=== PATIENT | male | born 1955 | race Caucasian/White ===

== ENCOUNTER 2017-12-27 20:21 | Emergency (ER) | payer OTHER, SELFPAY ==
[~2017-12-27] VITALS: Ht 170.2 cm; Wt 88.6 kg
[~2017-12-27 20:21] MED LIST: LISI10TA PO
[2017-12-27] MEDS ORDERED: METO50 PO (20:45)
[2017-12-27] MEDS ORDERED: TAMS0.4C32 PO (20:45)
[2017-12-27] MEDS ORDERED: MESA400C2 PO (20:45)
[2017-12-27] MEDS ORDERED: LOSA50TA37 PO (20:45)
[2017-12-27] MEDS ORDERED: TIOT185 IH (20:45)
[2017-12-27] MEDS ORDERED: TRAZ-144 PO (20:45)
[2017-12-27] MEDS ORDERED: OMEP20 PO (20:45)
[2017-12-27 21:15] VITALS: BP 143/92
[2017-12-27] MEDS ORDERED: TAMSULOSIN HCL 0.4 MG CAPSULE PO ONE (22:00)
== END 2017-12-27 22:13 | disposition home or self-care (01) ==
LOC: EMS 20:22
DX: N40.0 Benign prostatic hyperplasia without lower urinary tract symptoms (principal); R39.12 Poor urinary stream; F17.210 Nicotine dependence, cigarettes, uncomplicated; E78.00 Pure hypercholesterolemia, unspecified; F20.9 Schizophrenia, unspecified; F32.9 Major depressive disorder, single episode, unspecified; I10 Essential (primary) hypertension; J45.909 Unspecified asthma, uncomplicated; Z88.0 Allergy status to penicillin; Z79.899 Other long term (current) drug therapy
CPT/HCPCS: 99283

== ENCOUNTER 2017-12-31 21:49 | Inpatient (IN) | payer OTHER ==
[~2017-12-31] VITALS: Ht 167.6 cm; Wt 84.9 kg
[~2017-12-31 21:49] MED LIST changes: -LISI10TA PO; +LOSA50TA37 PO; +MESA400C2 PO; +METO50 PO; +OMEP20 PO; +TAMS0.4C32 PO; +TIOT185 IH; +TRAZ-144 PO
[2017-12-31] MEDS ORDERED: ATOR40TA28 PO (22:12)
[2017-12-31] MEDS ORDERED: LORazepam 2 MG TABLET PO ONE (23:30)
[2017-12-31 23:37] LABS: BASOPHILS % (AUTO) 0.4 % (0.0-2.0); EOSINOPHILS % (AUTO) 0.4 % (1.0-6.0); HEMOGLOBIN 14.5 g/dL (13.5-17.5); LYMPHOCYTES # (AUTO) 0.8 K/uL (1.0-4.8); MEAN CORPUSCULAR HEMOGLOBIN 31.8 pg (26.0-34.0); MEAN CORPUSCULAR HGB CONC 34.5 G/dL (31.0-37.0); MEAN CORPUSCULAR VOLUME 92 fL (80-100); MONOCYTES # (AUTO) 0.7 K/uL (0.1-1.0); MONOCYTES % (AUTO) 5.9 % (2.0-9.0); NEUTROPHILS # (AUTO) 9.6 K/uL (1.8-7.7); PLATELET COUNT (AUTO) 218 K/uL (150-450); RED BLOOD CELL COUNT(AUTO) 4.56 MIL/uL (4.50-5.90); RED CELL DISTRIBUTION WIDTH 13.4 % (11.5-14.5)
[2017-12-31 23:39] LABS: NEUTROPHILS % (AUTO) 86.3 % (40.0-70.0)
[2017-12-31 23:54] LABS: ALANINE AMINOTRANSFERASE 26 U/L (12-78); ALBUMIN 3.7 g/dL (3.4-5.0); ALKALINE PHOSPHATASE 155 U/L (46-116); ANION GAP 13 mmol/L (8-16); ASPARTATE AMINOTRANSFERASE 13 U/L (15-37); CALCIUM, TOTAL 9.5 mg/dL (8.8-10.5); CARBON DIOXIDE 22 mmol/L (22-29); CHLORIDE 94 mmol/L (98-107); CREATININE 1.29 mg/dL (0.60-1.30); GLOMERULAR FILTR. RATE CALC 56 mL/min (>60); POTASSIUM 4.4 mmol/L (3.5-5.1); SODIUM SERUM 129 mmol/L (136-145); TOTAL PROTEIN, SERUM 8.3 g/dL (6.4-8.2); UREA NITROGEN, BLOOD 24 mg/dL (7-18)
[2017-12-31 23:58] LABS: GLUCOSE,RANDOM 631 mg/dL (70-110)
[2018-01-01 00:13] LABS: GLUCOSE,POINT OF CARE > 600 MG/DL (70-110)
[2018-01-01] MEDS ORDERED: SODIUM CHLORIDE 0.9% 1,000 ML IV ONE ×3 (00:15→11:00)
[2018-01-01] MEDS ORDERED: INSULIN REGULAR, HUMAN 100 UNITS/ML IVP ONE (00:15)
[2018-01-01 00:28] LABS: ACETONE,BLOOD NEGATIVE (NEGATIVE)
[2018-01-01 00:29] LABS: LIPASE 197 U/L (73-393)
[2018-01-01 00:32] LABS: HEMOGLOBIN A1C 10.1 % (4.5-6.2)
[2018-01-01 00:55] LABS: APPEARANCE,URINE CLEAR (CLEAR)
[2018-01-01 00:56] LABS: BILIRUBIN,URINE NEGATIVE (NEGATIVE); GLUCOSE, URINE (UA) >=1000 mg/dL (NEGATIVE); KETONES,URINE 40 mg/dL (NEGATIVE); LEUKOCYTE ESTERASE ,URINE NEGATIVE (NEGATIVE); NITRATE,URINE NEGATIVE (NEGATIVE); OCCULT BLOOD,URINE MODERATE (NEGATIVE); PH,URINE 5.5 (5.0-8.0); PROTEIN,URINE NEGATIVE (NEGATIVE); UROBILINOGEN,URINE 0.2 mg/dL (<=1.0)
[2018-01-01 00:57] LABS: BACTERIA,URINE None Seen /HPF (None Seen); WBC,URINE None Seen /HPF (0-5)
[2018-01-01 01:52] LABS: GLUCOSE,POINT OF CARE 417 MG/DL (70-110)
[2018-01-01 03:12] LABS: GLUCOSE,POINT OF CARE 373 MG/DL (70-110)
[2018-01-01] MEDS ORDERED: ONDANSETRON HCL 4 MG/2 ML VIAL IVP PRN ×2 (04:00→06:45)
[2018-01-01] MEDS ORDERED: 0.9% SODIUM CHLORIDE 10 ML SYRINGE IVP PRN (04:00)
[2018-01-01] MEDS ORDERED: ACETAMINOPHEN 325 MG TABLET PO PRN (04:00)
[2018-01-01 05:42] VITALS: BP 141/72
[2018-01-01] MEDS ORDERED: DEXTROSE 50%-WATER 25 GM/50 ML SYRINGE IVP PRN (05:45)
[2018-01-01] MEDS: INSULIN LISPRO 100 UNITS/ML SQ PRN ×4 (06:00→20:35)
[2018-01-01] MEDS ORDERED: PNEUMOCOCCAL VACCINE POLYVALENT 0.5 ML VIAL [PPSV23] IM ONE (06:15)
[2018-01-01] MEDS ORDERED: ALBUTEROL SULFATE 2.5 MG/0.5 ML NEB SOLUTION NEB PRN (06:45)
[2018-01-01] MEDS ORDERED: IPRATROPIUM BROMIDE 0.5 MG/2.5 ML NEB SOLUTION NEB PRN (06:45)
[2018-01-01] MEDS ORDERED: BISACODYL 10 MG RECTAL RECTAL SUPPOSITORY PR PRN (06:45)
[2018-01-01] MEDS ORDERED: MAGNESIUM HYDROXIDE SUSPENSION 30 ML UDCUP PO PRN (06:45)
[2018-01-01] MEDS ORDERED: ZOLPIDEM TARTRATE 5 MG TABLET PO PRN (06:45)
[2018-01-01 07:16] VITALS: BP 142/69
[2018-01-01] MEDS: OMEPRAZOLE 20 MG CAPSULE PO SCH (08:57)
[2018-01-01] MEDS: METOPROLOL TARTRATE 50 MG TABLET PO SCH ×2 (08:57→20:26)
[2018-01-01] MEDS: LOSARTAN POTASSIUM 50 MG TABLET PO SCH (08:57)
[2018-01-01] MEDS: TAMSULOSIN HCL 0.4 MG CAPSULE PO SCH (08:57)
[2018-01-01] MEDS: HEPARIN SODIUM,PORCINE 5,000 UNITS/ML VIAL SQ SCH ×2 (08:57→20:26)
[2018-01-01] MEDS: TIOTROPIUM BROMIDE 18 MCG/INH HANDIHALER [5] IH SCH (10:28)
[2018-01-01 12:23] LABS: GLUCOMETER DEV NAME(LOC) 6N 2D; GLUCOSE,POINT OF CARE 274 MG/DL (70-110)
[2018-01-01 12:23] LABS: GLUCOMETER DEV NAME(LOC) 6N 2D; GLUCOSE,POINT OF CARE 326 MG/DL (70-110)
[2018-01-01 12:25] VITALS: BP 124/66
[2018-01-01 15:22] VITALS: BP 122/70
[2018-01-01] MEDS: ACETAMINOPHEN 325 MG TABLET PO PRN (18:45)
[2018-01-01 19:33] VITALS: BP 132/83
[2018-01-01 20:03] LABS: GLUCOMETER DEV NAME(LOC) 6N 1E; GLUCOSE,POINT OF CARE 238 MG/DL (70-110)
[2018-01-01] MEDS: ATORVASTATIN CALCIUM 40 MG TABLET PO SCH (20:26)
[2018-01-01] MEDS ORDERED: INSULIN GLARGINE,HUM.REC.ANLOG 100 UNITS/ML SQ SCH ×2 (21:00)
[2018-01-01 22:42] LABS: GLUCOMETER DEV NAME(LOC) 6N 2D; GLUCOSE,POINT OF CARE 315 MG/DL (70-110)
[2018-01-01 23:25] VITALS: BP 142/79
[2018-01-02 02:56] VITALS: BP 153/80
[2018-01-02] MEDS: ACETAMINOPHEN 325 MG TABLET PO PRN (04:32)
[2018-01-02] MEDS: INSULIN LISPRO 100 UNITS/ML SQ PRN ×4 (05:57→21:56)
[2018-01-02 06:34] LABS: BASOPHILS % (AUTO) 1.1 % (0.0-2.0); EOSINOPHILS % (AUTO) 5.2 % (1.0-6.0); HEMATOCRIT 35.3 % (41-53); HEMOGLOBIN 12.5 g/dL (13.5-17.5); LYMPHOCYTES # (AUTO) 1.5 K/uL (1.0-4.8); LYMPHOCYTES % (AUTO) 21.2 % (22.0-44.0); MEAN CORPUSCULAR HEMOGLOBIN 32.1 pg (26.0-34.0); MEAN CORPUSCULAR HGB CONC 35.3 G/dL (31.0-37.0); MEAN CORPUSCULAR VOLUME 91 fL (80-100); MONOCYTES # (AUTO) 0.5 K/uL (0.1-1.0); MONOCYTES % (AUTO) 7.3 % (2.0-9.0); NEUTROPHILS # (AUTO) 4.7 K/uL (1.8-7.7); NEUTROPHILS % (AUTO) 65.2 % (40.0-70.0); PLATELET COUNT (AUTO) 191 K/uL (150-450); RED BLOOD CELL COUNT(AUTO) 3.89 MIL/uL (4.50-5.90); RED CELL DISTRIBUTION WIDTH 13.4 % (11.5-14.5)
[2018-01-02 06:47] LABS: ALANINE AMINOTRANSFERASE 19 U/L (12-78); ALBUMIN 2.6 g/dL (3.4-5.0); ALKALINE PHOSPHATASE 90 U/L (46-116); ANION GAP 8 mmol/L (8-16); ASPARTATE AMINOTRANSFERASE 12 U/L (15-37); BILIRUBIN,TOTAL 0.8 mg/dL (0.1-1.0); CALCIUM, TOTAL 7.8 mg/dL (8.8-10.5); CARBON DIOXIDE 26 mmol/L (22-29); CHLORIDE 105 mmol/L (98-107); CREATININE 0.88 mg/dL (0.60-1.30); GLOMERULAR FILTR. RATE CALC > 60 mL/min (>60); GLUCOSE,RANDOM 208 mg/dL (70-110); PHOSPHORUS 2.6 mg/dL (2.5-4.9); SODIUM SERUM 139 mmol/L (136-145); TOTAL PROTEIN, SERUM 6.2 g/dL (6.4-8.2); UREA NITROGEN, BLOOD 21 mg/dL (7-18)
[2018-01-02 08:02] VITALS: BP 133/55
[2018-01-02] MEDS: TAMSULOSIN HCL 0.4 MG CAPSULE PO SCH ×3 (08:49→21:01)
[2018-01-02] MEDS: LOSARTAN POTASSIUM 50 MG TABLET PO SCH (08:49)
[2018-01-02] MEDS: OMEPRAZOLE 20 MG CAPSULE PO SCH (08:49)
[2018-01-02] MEDS: METOPROLOL TARTRATE 50 MG TABLET PO SCH ×2 (08:49→21:03)
[2018-01-02] MEDS: TIOTROPIUM BROMIDE 18 MCG/INH HANDIHALER [5] IH SCH (08:49)
[2018-01-02] MEDS: HEPARIN SODIUM,PORCINE 5,000 UNITS/ML VIAL SQ SCH ×2 (08:50→21:09)
[2018-01-02] MEDS ORDERED: MAGNESIUM SULFATE 2 GM in DEXTROSE 5%-WATER 50 ML IV PRN (09:00)
[2018-01-02] MEDS ORDERED: MAGNESIUM SULFATE 4 GM/WATER 100 ML IV PRN (09:00)
[2018-01-02] MEDS ORDERED: POTASSIUM CHL 10 MEQ/WATER 50 ML IV PRN (09:00)
[2018-01-02] MEDS ORDERED: NICOTINE 21 MG/24 HOUR PATCH TD ONE (09:45)
[2018-01-02] MEDS ORDERED: SODIUM CHLORIDE 0.9% 0 ML IV ONE (11:40)
[2018-01-02 11:42] VITALS: BP 141/91
[2018-01-02] MEDS: POTASSIUM CHLORIDE 20 MEQ ER TABLET PO PRN (11:42)
[2018-01-02 16:15] VITALS: BP 136/83
[2018-01-02 18:57] LABS: GLUCOMETER DEV NAME(LOC) 6N 1E; GLUCOSE,POINT OF CARE 290 MG/DL (70-110)
[2018-01-02 18:57] LABS: GLUCOMETER DEV NAME(LOC) 6N 1E; GLUCOSE,POINT OF CARE 216 MG/DL (70-110)
[2018-01-02 18:57] LABS: GLUCOMETER DEV NAME(LOC) 6N 1E; GLUCOSE,POINT OF CARE 242 MG/DL (70-110)
[2018-01-02 19:32] VITALS: BP 131/85
[2018-01-02] MEDS ORDERED: INSULIN GLARGINE,HUM.REC.ANLOG 100 UNITS/ML SQ SCH (21:00)
[2018-01-02] MEDS: ATORVASTATIN CALCIUM 40 MG TABLET PO SCH (21:02)
[2018-01-02 22:08] LABS: GLUCOMETER DEV NAME(LOC) 6N 1E; GLUCOSE,POINT OF CARE 263 MG/DL (70-110)
[2018-01-02 23:18] VITALS: BP 126/83
[2018-01-03 04:39] VITALS: BP 121/76
[2018-01-03] MEDS: INSULIN LISPRO 100 UNITS/ML SQ PRN ×3 (05:51→17:18)
[2018-01-03 06:27] LABS: GLUCOMETER DEV NAME(LOC) 6N 1E; GLUCOSE,POINT OF CARE 247 MG/DL (70-110)
[2018-01-03 07:58] VITALS: BP 126/80
[2018-01-03] MEDS: OMEPRAZOLE 20 MG CAPSULE PO SCH (08:13)
[2018-01-03] MEDS: TAMSULOSIN HCL 0.4 MG CAPSULE PO SCH ×2 (08:13→20:20)
[2018-01-03] MEDS: METOPROLOL TARTRATE 50 MG TABLET PO SCH ×2 (08:13→20:21)
[2018-01-03] MEDS: LOSARTAN POTASSIUM 50 MG TABLET PO SCH (08:14)
[2018-01-03] MEDS: HEPARIN SODIUM,PORCINE 5,000 UNITS/ML VIAL SQ SCH ×2 (08:14→20:27)
[2018-01-03] MEDS: TIOTROPIUM BROMIDE 18 MCG/INH HANDIHALER [5] IH SCH (08:21)
[2018-01-03 11:23] LABS: GLUCOMETER DEV NAME(LOC) 6N 1E; GLUCOSE,POINT OF CARE 274 MG/DL (70-110)
[2018-01-03] MEDS: MAGNESIUM OXIDE 400 MG TABLET PO PRN ×3 (11:28→20:21)
[2018-01-03] MEDS: ACETAMINOPHEN 325 MG TABLET PO PRN ×2 (11:28→23:43)
[2018-01-03 12:05] VITALS: BP 127/90
[2018-01-03 16:14] VITALS: BP 135/79
[2018-01-03 17:53] LABS: GLUCOMETER DEV NAME(LOC) 6N 2D; GLUCOSE,POINT OF CARE 306 MG/DL (70-110)
[2018-01-03 19:10] VITALS: BP 135/84
[2018-01-03] MEDS: ATORVASTATIN CALCIUM 40 MG TABLET PO SCH (20:21)
[2018-01-03] MEDS: INSULIN GLARGINE,HUM.REC.ANLOG 100 UNITS/ML SQ SCH (20:27)
[2018-01-03] MEDS ORDERED: IOVERSOL 350 MG/ML 100 ML VIAL ONE (22:28)
[2018-01-03 22:56] VITALS: BP 139/87
[2018-01-04 00:18] LABS: GLUCOMETER DEV NAME(LOC) 6N 1E; GLUCOSE,POINT OF CARE 219 MG/DL (70-110)
[2018-01-04 04:35] VITALS: BP 136/83
[2018-01-04 08:02] VITALS: BP 135/83
[2018-01-04 08:33] LABS: BASOPHILS % (AUTO) 0.7 % (0.0-2.0); EOSINOPHILS % (AUTO) 6.5 % (1.0-6.0); HEMOGLOBIN 13.7 g/dL (13.5-17.5); LYMPHOCYTES # (AUTO) 1.5 K/uL (1.0-4.8); LYMPHOCYTES % (AUTO) 20.3 % (22.0-44.0); MEAN CORPUSCULAR HGB CONC 36.2 G/dL (31.0-37.0); MEAN CORPUSCULAR VOLUME 88 fL (80-100); MONOCYTES # (AUTO) 0.7 K/uL (0.1-1.0); MONOCYTES % (AUTO) 9.7 % (2.0-9.0); NEUTROPHILS # (AUTO) 4.7 K/uL (1.8-7.7); NEUTROPHILS % (AUTO) 62.8 % (40.0-70.0); PLATELET COUNT (AUTO) 192 K/uL (150-450); RED CELL DISTRIBUTION WIDTH 13.4 % (11.5-14.5)
[2018-01-04] MEDS: LOSARTAN POTASSIUM 50 MG TABLET PO SCH (08:42)
[2018-01-04] MEDS: METOPROLOL TARTRATE 50 MG TABLET PO SCH ×2 (08:43→20:02)
[2018-01-04] MEDS: OMEPRAZOLE 20 MG CAPSULE PO SCH (08:43)
[2018-01-04] MEDS: TAMSULOSIN HCL 0.4 MG CAPSULE PO SCH ×3 (08:43→20:34)
[2018-01-04] MEDS: TIOTROPIUM BROMIDE 18 MCG/INH HANDIHALER [5] IH SCH (08:43)
[2018-01-04 08:57] LABS: ANION GAP 5 mmol/L (8-16); CALCIUM, TOTAL 8.3 mg/dL (8.8-10.5); CARBON DIOXIDE 30 mmol/L (22-29); CHLORIDE 105 mmol/L (98-107); CREATININE 0.85 mg/dL (0.60-1.30); GLOMERULAR FILTR. RATE CALC > 60 mL/min (>60); GLUCOSE,RANDOM 187 mg/dL (70-110); POTASSIUM 3.5 mmol/L (3.5-5.1); SODIUM SERUM 140 mmol/L (136-145); UREA NITROGEN, BLOOD 12 mg/dL (7-18)
[2018-01-04] MEDS: HEPARIN SODIUM,PORCINE 5,000 UNITS/ML VIAL SQ SCH ×2 (09:00→20:02)
[2018-01-04 11:25] VITALS: BP 118/81
[2018-01-04] MEDS ORDERED: WATER FOR IRRIGATION,STERILE 3,000 ML IRRIG ONE (11:30)
[2018-01-04] MEDS: OxyCODONE HCL/ACETAMINOPHEN 5-325 MG TABLET PO PRN ×2 (11:51→20:01)
[2018-01-04] MEDS: INSULIN LISPRO 100 UNITS/ML SQ PRN ×3 (11:55→20:31)
[2018-01-04] MEDS ORDERED: MIDAZOLAM HCL 2 MG/2 ML VIAL IVP ONE (12:00)
[2018-01-04] MEDS ORDERED: DEXAMETHASONE SOD PHOS 4 MG/ML VIAL IVP ONE (12:00)
[2018-01-04] MEDS ORDERED: 0.9% SODIUM CHLORIDE 10 ML VIAL IVP ONE (12:00)
[2018-01-04] MEDS ORDERED: PROPOFOL 1% 20 ML VIAL IVP ONE (12:00)
[2018-01-04] MEDS ORDERED: EPHEDrine SULFATE 50 MG/ML VIAL IM ONE (12:00)
[2018-01-04] MEDS ORDERED: FentaNYL CITRATE-PF 100 MCG/2 ML VIAL IVP ONE (12:00)
[2018-01-04] MEDS ORDERED: LIDOCAINE HCL/PF 2% 5 ML VIAL INJ ONE (12:00)
[2018-01-04] MEDS ORDERED: SODIUM CHLORIDE 0.9% 1,000 ML IV ONE (12:32)
[2018-01-04] MEDS ORDERED: CefTRIAXone SODIUM 1 GM/VIAL ONE (12:54)
[2018-01-04] MEDS ORDERED: SODIUM CHLORIDE 0.9% 50 ML ONE (12:54)
[2018-01-04] MEDS ORDERED: HYDROmorphone 2 MG/ML SYRINGE IVP PRN (13:15)
[2018-01-04] MEDS ORDERED: FentaNYL CITRATE-PF 100 MCG/2 ML VIAL IVP PRN (13:15)
[2018-01-04] MEDS ORDERED: MEPERIDINE-PF 25 MG/ML SYRINGE IVP PRN (13:15)
[2018-01-04] MEDS ORDERED: MEPERIDINE HCL/PF 25 MG/0.5 ML AMP IVP PRN (14:30)
[2018-01-04] MEDS ORDERED: IOVERSOL 350 MG/ML 150 ML VIAL ONE (14:39)
[2018-01-04] MEDS ORDERED: IOHEXOL 180 MG/ML 20 ML VIAL ONE (14:40)
[2018-01-04 16:25] VITALS: BP 136/94
[2018-01-04 17:22] LABS: GLUCOMETER DEV NAME(LOC) 6N 2D; GLUCOSE,POINT OF CARE 227 MG/DL (70-110)
[2018-01-04 19:28] VITALS: BP 133/89
[2018-01-04] MEDS: ATORVASTATIN CALCIUM 40 MG TABLET PO SCH (20:02)
[2018-01-04] MEDS: INSULIN GLARGINE,HUM.REC.ANLOG 100 UNITS/ML SQ SCH (20:32)
[2018-01-04 23:28] LABS: GLUCOMETER DEV NAME(LOC) 6N 1E; GLUCOSE,POINT OF CARE 291 MG/DL (70-110)
[2018-01-04 23:28] LABS: GLUCOMETER DEV NAME(LOC) 6N 1E; GLUCOSE,POINT OF CARE 347 MG/DL (70-110)
[2018-01-04 23:46] VITALS: BP 135/84
[2018-01-05 03:57] VITALS: BP 136/71
[2018-01-05] MEDS: INSULIN LISPRO 100 UNITS/ML SQ PRN ×4 (06:15→20:16)
[2018-01-05 06:28] LABS: GLUCOMETER DEV NAME(LOC) 6N 1E; GLUCOSE,POINT OF CARE 158 MG/DL (70-110)
[2018-01-05 07:57] VITALS: BP 125/84
[2018-01-05] MEDS: OXYGEN THERAPY IH SCH (08:00)
[2018-01-05] MEDS: OMEPRAZOLE 20 MG CAPSULE PO SCH (08:20)
[2018-01-05] MEDS: METOPROLOL TARTRATE 50 MG TABLET PO SCH ×2 (08:20→20:10)
[2018-01-05] MEDS: LOSARTAN POTASSIUM 50 MG TABLET PO SCH (08:20)
[2018-01-05] MEDS: TIOTROPIUM BROMIDE 18 MCG/INH HANDIHALER [5] IH SCH (08:20)
[2018-01-05] MEDS: TAMSULOSIN HCL 0.4 MG CAPSULE PO SCH ×2 (08:21→20:09)
[2018-01-05] MEDS: HEPARIN SODIUM,PORCINE 5,000 UNITS/ML VIAL SQ SCH ×3 (08:21→20:20)
[2018-01-05] MEDS: OxyCODONE HCL/ACETAMINOPHEN 5-325 MG TABLET PO PRN ×3 (08:31→20:14)
[2018-01-05] MEDS ORDERED: PEG 3350/NA SULF,BICARB,CL/KCL 4000 ML SOLUTION PO ONE (10:45)
[2018-01-05 11:38] VITALS: BP 144/80
[2018-01-05 11:57] LABS: GLUCOMETER DEV NAME(LOC) 6N 2D; GLUCOSE,POINT OF CARE 344 MG/DL (70-110)
[2018-01-05 15:54] VITALS: BP 138/70
[2018-01-05 17:58] LABS: GLUCOMETER DEV NAME(LOC) 6N 2D; GLUCOSE,POINT OF CARE 207 MG/DL (70-110)
[2018-01-05 19:55] VITALS: BP 140/84
[2018-01-05] MEDS: ATORVASTATIN CALCIUM 40 MG TABLET PO SCH (20:10)
[2018-01-05] MEDS: INSULIN GLARGINE,HUM.REC.ANLOG 100 UNITS/ML SQ SCH (20:15)
[2018-01-05 20:32] LABS: GLUCOMETER DEV NAME(LOC) 6N 1E; GLUCOSE,POINT OF CARE 231 MG/DL (70-110)
[2018-01-06] VITALS (7 sets, daily range): BP systolic 103–146; BP diastolic 56–85
[2018-01-06] MEDS: ACETAMINOPHEN 325 MG TABLET PO PRN ×2 (00:17→10:43)
[2018-01-06] MEDS: OxyCODONE HCL/ACETAMINOPHEN 5-325 MG TABLET PO PRN ×3 (07:31→22:29)
[2018-01-06] MEDS: HEPARIN SODIUM,PORCINE 5,000 UNITS/ML VIAL SQ SCH ×2 (09:00→21:00)
[2018-01-06] MEDS ORDERED: SODIUM CHLORIDE 0.9% 1,000 ML IV ONE (09:58)
[2018-01-06] MEDS: LOSARTAN POTASSIUM 50 MG TABLET PO SCH (10:43)
[2018-01-06] MEDS: METOPROLOL TARTRATE 50 MG TABLET PO SCH ×2 (10:43→19:58)
[2018-01-06] MEDS: TAMSULOSIN HCL 0.4 MG CAPSULE PO SCH ×2 (10:43→19:58)
[2018-01-06] MEDS: OMEPRAZOLE 20 MG CAPSULE PO SCH (10:43)
[2018-01-06] MEDS ORDERED: PROPOFOL 1% 20 ML VIAL IVP ONE (12:00)
[2018-01-06] MEDS ORDERED: LIDOCAINE HCL/PF 2% 5 ML VIAL INJ ONE (12:00)
[2018-01-06] MEDS: TIOTROPIUM BROMIDE 18 MCG/INH HANDIHALER [5] IH SCH (12:09)
[2018-01-06] MEDS: INSULIN LISPRO 100 UNITS/ML SQ PRN ×3 (12:12→20:06)
[2018-01-06] MEDS: NEOMYCIN SULFATE 500 MG TABLET PO SCH ×2 (13:01→14:01)
[2018-01-06] MEDS: ERYTHROMYCIN BASE 500 MG TABLET PO SCH ×2 (13:01→14:01)
[2018-01-06 13:03] LABS: GLUCOMETER DEV NAME(LOC) 6N 1E; GLUCOSE,POINT OF CARE 285 MG/DL (70-110)
[2018-01-06 19:52] LABS: GLUCOMETER DEV NAME(LOC) 6N 2D; GLUCOSE,POINT OF CARE 164 MG/DL (70-110)
[2018-01-06] MEDS: ATORVASTATIN CALCIUM 40 MG TABLET PO SCH (19:58)
[2018-01-06] MEDS: INSULIN GLARGINE,HUM.REC.ANLOG 100 UNITS/ML SQ SCH (20:06)
[2018-01-07] MEDS: NEOMYCIN SULFATE 500 MG TABLET PO SCH ×2 (00:25→13:04)
[2018-01-07] MEDS: ERYTHROMYCIN BASE 500 MG TABLET PO SCH (00:25)
[2018-01-07 00:53] LABS: GLUCOMETER DEV NAME(LOC) 6N 1E; GLUCOSE,POINT OF CARE 169 MG/DL (70-110)
[2018-01-07 05:05] VITALS: BP 120/55
[2018-01-07] MEDS: INSULIN LISPRO 100 UNITS/ML SQ PRN ×3 (06:29→17:38)
[2018-01-07 06:39] LABS: GLUCOMETER DEV NAME(LOC) 6N 2D; GLUCOSE,POINT OF CARE 172 MG/DL (70-110)
[2018-01-07 07:33] LABS: BASOPHILS % (AUTO) 0.4 % (0.0-2.0); EOSINOPHILS % (AUTO) 2.8 % (1.0-6.0); HEMATOCRIT 36.6 % (41-53); HEMOGLOBIN 13.5 g/dL (13.5-17.5); LYMPHOCYTES # (AUTO) 0.9 K/uL (1.0-4.8); LYMPHOCYTES % (AUTO) 9.8 % (22.0-44.0); MEAN CORPUSCULAR HEMOGLOBIN 33.1 pg (26.0-34.0); MEAN CORPUSCULAR HGB CONC 36.8 G/dL (31.0-37.0); MEAN CORPUSCULAR VOLUME 90 fL (80-100); MONOCYTES # (AUTO) 0.8 K/uL (0.1-1.0); MONOCYTES % (AUTO) 8.9 % (2.0-9.0); NEUTROPHILS # (AUTO) 7.1 K/uL (1.8-7.7); NEUTROPHILS % (AUTO) 78.1 % (40.0-70.0); PLATELET COUNT (AUTO) 226 K/uL (150-450); RED BLOOD CELL COUNT(AUTO) 4.07 MIL/uL (4.50-5.90); RED CELL DISTRIBUTION WIDTH 13.6 % (11.5-14.5)
[2018-01-07 07:45] VITALS: BP 124/71
[2018-01-07 08:00] LABS: ALANINE AMINOTRANSFERASE 22 U/L (12-78); ALBUMIN 2.8 g/dL (3.4-5.0); ALKALINE PHOSPHATASE 103 U/L (46-116); ANION GAP 8 mmol/L (8-16); ASPARTATE AMINOTRANSFERASE 18 U/L (15-37); BILIRUBIN,TOTAL 0.8 mg/dL (0.1-1.0); CALCIUM, TOTAL 8.5 mg/dL (8.8-10.5); CARBON DIOXIDE 29 mmol/L (22-29); CHLORIDE 103 mmol/L (98-107); GLOMERULAR FILTR. RATE CALC > 60 mL/min (>60); GLUCOSE,RANDOM 167 mg/dL (70-110); POTASSIUM 3.6 mmol/L (3.5-5.1); SODIUM SERUM 140 mmol/L (136-145); TOTAL PROTEIN, SERUM 7.2 g/dL (6.4-8.2); UREA NITROGEN, BLOOD 10 mg/dL (7-18)
[2018-01-07] MEDS ORDERED: SODIUM CHLORIDE 0.9% 1,000 ML IV ONE (08:50)
[2018-01-07] MEDS ORDERED: SODIUM CL IRRIG SOLN BAG 3,000 ML IRRIG ONE (08:50)
[2018-01-07] MEDS ORDERED: BUPIVACAINE HCL/PF 0.25% 30 ML VIAL ONE (08:50)
[2018-01-07] MEDS: HEPARIN SODIUM,PORCINE 5,000 UNITS/ML VIAL SQ SCH ×2 (09:00→22:15)
[2018-01-07] MEDS ORDERED: MEPERIDINE-PF 25 MG/ML SYRINGE IVP PRN (09:15)
[2018-01-07] MEDS ORDERED: FentaNYL CITRATE-PF 100 MCG/2 ML VIAL IVP PRN (09:15)
[2018-01-07] MEDS ORDERED: MEPERIDINE HCL/PF 25 MG/0.5 ML AMP IVP PRN (09:15)
[2018-01-07] MEDS ORDERED: BUPIVACAINE 0.25%/EPI 1:200,000/PF 10 ML VIAL INJ ONE (09:30)
[2018-01-07] MEDS ORDERED: HYDROmorphone 2 MG/ML SYRINGE ONE (10:50)
[2018-01-07] MEDS: HYDROmorphone 2 MG/ML SYRINGE IVP PRN ×2 (10:52→11:05)
[2018-01-07 11:40] VITALS: BP 142/80
[2018-01-07] MEDS: MORPHINE SULFATE 4 MG/ML SYRINGE IVP PRN ×6 (11:45→22:14)
[2018-01-07] MEDS: LOSARTAN POTASSIUM 50 MG TABLET PO SCH (11:55)
[2018-01-07] MEDS: TAMSULOSIN HCL 0.4 MG CAPSULE PO SCH ×2 (11:55→19:58)
[2018-01-07] MEDS: OMEPRAZOLE 20 MG CAPSULE PO SCH (11:55)
[2018-01-07] MEDS: TIOTROPIUM BROMIDE 18 MCG/INH HANDIHALER [5] IH SCH (11:55)
[2018-01-07] MEDS: METOPROLOL TARTRATE 50 MG TABLET PO SCH ×2 (11:55→19:58)
[2018-01-07] MEDS ORDERED: EPINEPHrine 1:1,000 [1 MG/ML] AMP IM ONE (12:00)
[2018-01-07] MEDS ORDERED: 0.9% SODIUM CHLORIDE 10 ML VIAL IVP ONE (12:00)
[2018-01-07] MEDS ORDERED: LIDOCAINE HCL/PF 2% 5 ML VIAL INJ ONE (12:00)
[2018-01-07] MEDS ORDERED: ONDANSETRON HCL 4 MG/2 ML VIAL IVP ONE (12:00)
[2018-01-07] MEDS ORDERED: FentaNYL CITRATE-PF 100 MCG/2 ML VIAL IVP ONE (12:00)
[2018-01-07] MEDS ORDERED: EPHEDrine SULFATE 50 MG/ML VIAL IM ONE (12:00)
[2018-01-07] MEDS ORDERED: PROPOFOL 1% 20 ML VIAL IVP ONE (12:00)
[2018-01-07] MEDS ORDERED: MORPHINE SULFATE 4 MG/ML SYRINGE IVP ONE (12:00)
[2018-01-07] MEDS ORDERED: ROCURONIUM BROMIDE 10 MG/ML 5 ML VIAL IVP ONE (12:00)
[2018-01-07] MEDS ORDERED: NEOSTIGMINE METHYLSULFATE 1 MG/ML 10 ML VIAL IVP ONE (12:00)
[2018-01-07] MEDS ORDERED: SUCCINYLCHOLINE CHLORIDE 20 MG/ML 10 ML VIAL IVP ONE (12:00)
[2018-01-07] MEDS ORDERED: GLYCOPYRROLATE 0.2 MG/ML VIAL IM ONE (12:00)
[2018-01-07] MEDS ORDERED: PHENYLEPHRINE HCL 10 MG/ML VIAL IVP ONE (12:00)
[2018-01-07] MEDS ORDERED: MIDAZOLAM HCL 2 MG/2 ML VIAL IVP ONE (12:00)
[2018-01-07 14:18] LABS: GLUCOMETER DEV NAME(LOC) 6N 1E; GLUCOSE,POINT OF CARE 201 MG/DL (70-110)
[2018-01-07 17:53] LABS: GLUCOMETER DEV NAME(LOC) 6N 2D; GLUCOSE,POINT OF CARE 217 MG/DL (70-110)
[2018-01-07 19:50] VITALS: BP 128/83
[2018-01-07] MEDS: ATORVASTATIN CALCIUM 40 MG TABLET PO SCH (19:58)
[2018-01-07] MEDS ORDERED: OXYGEN THERAPY IH SCH (20:00)
[2018-01-07 21:33] LABS: GLUCOMETER DEV NAME(LOC) 6N 1E; GLUCOSE,POINT OF CARE 142 MG/DL (70-110)
[2018-01-07] MEDS: INSULIN GLARGINE,HUM.REC.ANLOG 100 UNITS/ML SQ SCH (22:15)
[2018-01-07 23:30] VITALS: BP 118/73
[2018-01-08] MEDS: HYDROCODONE/ACETAMINOPHEN 5-325 MG TABLET PO PRN ×4 (00:15→15:42)
[2018-01-08] MEDS: MORPHINE SULFATE 4 MG/ML SYRINGE IVP PRN ×7 (01:20→22:16)
[2018-01-08 04:42] VITALS: BP 113/74
[2018-01-08 06:44] LABS: GLUCOMETER DEV NAME(LOC) 6N 1E; GLUCOSE,POINT OF CARE 98 MG/DL (70-110)
[2018-01-08 07:45] VITALS: BP 96/64
[2018-01-08] MEDS: OXYGEN THERAPY IH SCH (08:00)
[2018-01-08] MEDS: OMEPRAZOLE 20 MG CAPSULE PO SCH (08:34)
[2018-01-08] MEDS: TIOTROPIUM BROMIDE 18 MCG/INH HANDIHALER [5] IH SCH (08:34)
[2018-01-08] MEDS: HEPARIN SODIUM,PORCINE 5,000 UNITS/ML VIAL SQ SCH ×2 (08:34→19:53)
[2018-01-08] MEDS: LOSARTAN POTASSIUM 50 MG TABLET PO SCH (08:35)
[2018-01-08] MEDS: METOPROLOL TARTRATE 50 MG TABLET PO SCH ×2 (08:35→19:53)
[2018-01-08] MEDS: TAMSULOSIN HCL 0.4 MG CAPSULE PO SCH ×2 (08:35→19:53)
[2018-01-08 09:15] LABS: BASOPHILS % (AUTO) 0.7 % (0.0-2.0); EOSINOPHILS % (AUTO) 3.1 % (1.0-6.0); HEMATOCRIT 36.2 % (41-53); HEMOGLOBIN 12.8 g/dL (13.5-17.5); LYMPHOCYTES # (AUTO) 1.3 K/uL (1.0-4.8); LYMPHOCYTES % (AUTO) 13.2 % (22.0-44.0); MEAN CORPUSCULAR HEMOGLOBIN 31.7 pg (26.0-34.0); MEAN CORPUSCULAR HGB CONC 35.3 G/dL (31.0-37.0); MEAN CORPUSCULAR VOLUME 90 fL (80-100); MONOCYTES # (AUTO) 0.8 K/uL (0.1-1.0); MONOCYTES % (AUTO) 8.5 % (2.0-9.0); NEUTROPHILS # (AUTO) 7.3 K/uL (1.8-7.7); NEUTROPHILS % (AUTO) 74.5 % (40.0-70.0); PLATELET COUNT (AUTO) 255 K/uL (150-450); RED BLOOD CELL COUNT(AUTO) 4.04 MIL/uL (4.50-5.90); RED CELL DISTRIBUTION WIDTH 13.9 % (11.5-14.5)
[2018-01-08 09:34] LABS: ALANINE AMINOTRANSFERASE 24 U/L (12-78); ALBUMIN 2.8 g/dL (3.4-5.0); ALKALINE PHOSPHATASE 100 U/L (46-116); ANION GAP 7 mmol/L (8-16); ASPARTATE AMINOTRANSFERASE 19 U/L (15-37); BILIRUBIN,TOTAL 0.9 mg/dL (0.1-1.0); CALCIUM, TOTAL 7.9 mg/dL (8.8-10.5); CARBON DIOXIDE 28 mmol/L (22-29); CHLORIDE 103 mmol/L (98-107); CREATININE 1.06 mg/dL (0.60-1.30); GLOMERULAR FILTR. RATE CALC > 60 mL/min (>60); GLUCOSE,RANDOM 96 mg/dL (70-110); POTASSIUM 3.3 mmol/L (3.5-5.1); SODIUM SERUM 138 mmol/L (136-145); TOTAL PROTEIN, SERUM 7.1 g/dL (6.4-8.2); UREA NITROGEN, BLOOD 7 mg/dL (7-18)
[2018-01-08] MEDS: INSULIN LISPRO 100 UNITS/ML SQ PRN ×3 (11:44→20:23)
[2018-01-08 11:55] VITALS: BP 119/77
[2018-01-08 14:23] LABS: GLUCOMETER DEV NAME(LOC) 6N 2D; GLUCOSE,POINT OF CARE 139 MG/DL (70-110)
[2018-01-08 16:28] VITALS: BP 146/97
[2018-01-08] MEDS: POTASSIUM CHLORIDE 20 MEQ ER TABLET PO PRN (16:58)
[2018-01-08 19:44] LABS: GLUCOMETER DEV NAME(LOC) 6N 1E; GLUCOSE,POINT OF CARE 157 MG/DL (70-110)
[2018-01-08] MEDS: ATORVASTATIN CALCIUM 40 MG TABLET PO SCH (19:53)
[2018-01-08 19:59] VITALS: BP 123/83
[2018-01-08] MEDS: INSULIN GLARGINE,HUM.REC.ANLOG 100 UNITS/ML SQ SCH (20:23)
[2018-01-08 20:48] LABS: GLUCOMETER DEV NAME(LOC) 6N 2D; GLUCOSE,POINT OF CARE 201 MG/DL (70-110)
[2018-01-09 00:15] VITALS: BP 131/80
[2018-01-09] MEDS: MORPHINE SULFATE 4 MG/ML SYRINGE IVP PRN ×2 (03:22→05:29)
[2018-01-09 04:54] VITALS: BP 126/84
[2018-01-09] MEDS: INSULIN LISPRO 100 UNITS/ML SQ PRN ×2 (05:28→12:28)
[2018-01-09 05:43] LABS: GLUCOMETER DEV NAME(LOC) 6N 1E; GLUCOSE,POINT OF CARE 133 MG/DL (70-110)
[2018-01-09 07:52] VITALS: BP 132/89
[2018-01-09] MEDS: OXYGEN THERAPY IH SCH (08:00)
[2018-01-09] MEDS: HYDROCODONE/ACETAMINOPHEN 5-325 MG TABLET PO PRN ×3 (08:42→16:34)
[2018-01-09] MEDS: OMEPRAZOLE 20 MG CAPSULE PO SCH (08:42)
[2018-01-09] MEDS: METOPROLOL TARTRATE 50 MG TABLET PO SCH (08:43)
[2018-01-09] MEDS: LOSARTAN POTASSIUM 50 MG TABLET PO SCH (08:43)
[2018-01-09] MEDS: TAMSULOSIN HCL 0.4 MG CAPSULE PO SCH (08:43)
[2018-01-09] MEDS: TIOTROPIUM BROMIDE 18 MCG/INH HANDIHALER [5] IH SCH (08:44)
[2018-01-09] MEDS: HEPARIN SODIUM,PORCINE 5,000 UNITS/ML VIAL SQ SCH (08:44)
[2018-01-09 11:54] VITALS: BP 116/68
[2018-01-09 12:23] LABS: GLUCOMETER DEV NAME(LOC) 6N 2D; GLUCOSE,POINT OF CARE 186 MG/DL (70-110)
[2018-01-09] MEDS ORDERED: INSLAN SQ (15:52)
[2018-01-09 19:33] LABS: GLUCOMETER DEV NAME(LOC) 6N 1E; GLUCOSE,POINT OF CARE 131 MG/DL (70-110)
== END 2018-01-09 18:50 | disposition home or self-care (01) | DRG 952 ==
LOC: EMS 21:50 → 6N 01-01 04:22
PROVIDERS: ADMIT Internal Medicine; ATTEND Internal Medicine
PROC: 0TJB8ZZ Inspection of Bladder, Via Natural or Artificial Opening Endoscopic (ICD-10-PCS; principal; 2018-01-04 14:00)
PROC: 0DJD8ZZ Inspection of Lower Intestinal Tract, Via Natural or Artificial Opening Endoscopic (ICD-10-PCS; 2018-01-06)
PROC: 0WJG4ZZ Inspection of Peritoneal Cavity, Percutaneous Endoscopic Approach (ICD-10-PCS; 2018-01-07)
DX: N40.1 Benign prostatic hyperplasia with lower urinary tract symptoms (principal); E11.65 Type 2 diabetes mellitus with hyperglycemia; E87.1 Hypo-osmolality and hyponatremia; K51.90 Ulcerative colitis, unspecified, without complications; N30.91 Cystitis, unspecified with hematuria; N32.89 Other specified disorders of bladder; F20.9 Schizophrenia, unspecified; I10 Essential (primary) hypertension; E87.6 Hypokalemia; G51.0 Bell's palsy; R33.8 Other retention of urine; F32.9 Major depressive disorder, single episode, unspecified; E66.9 Obesity, unspecified; E78.00 Pure hypercholesterolemia, unspecified; K57.30 Diverticulosis of large intestine without perforation or abscess without bleeding; F17.210 Nicotine dependence, cigarettes, uncomplicated; E78.5 Hyperlipidemia, unspecified; J44.9 Chronic obstructive pulmonary disease, unspecified; K21.9 Gastro-esophageal reflux disease without esophagitis; K64.8 Other hemorrhoids; Z88.0 Allergy status to penicillin; Z79.899 Other long term (current) drug therapy; Z80.0 Family history of malignant neoplasm of digestive organs; Z80.42 Family history of malignant neoplasm of prostate; Z68.30 Body mass index [BMI] 30.0-30.9, adult
CPT/HCPCS: 51702; 70450; 72193; 74018; 74178; 83036; 83605; 83735; 84100; 84132; 84153; 87086; 93005; 96374; 99285; J0171; J0330; J0696; J1100; J1170; J1644; J1815; J2250; J2270; J2370; J2405; J2704; J3010; J3475; J3490; J7030; J7050; J7060; Q9965

== ENCOUNTER 2019-07-17 17:12 | Inpatient (IN) | payer MEDICARE, OTHER ==
[~2019-07-17] VITALS: Ht 167.6 cm; Wt 66.5 kg
[~2019-07-17 17:12] MED LIST changes: +ATOR40TA28 PO; +INSLAN SQ; -LOSA50TA37 PO; +LOSA50TA64 PO; -MESA400C2 PO; +TAMS-13 PO; -TAMS0.4C32 PO; -TRAZ-144 PO
[2019-07-17 17:51] LABS: GLUCOSE,POINT OF CARE 187 MG/DL (70-110)
[2019-07-17 19:08] LABS: BASOPHILS % (AUTO) 0.2 % (0.0-2.0); EOSINOPHILS % (AUTO) 0 % (1.0-6.0); HEMATOCRIT 24.3 % (41-53); HEMOGLOBIN 8.2 g/dL (13.5-17.5); LYMPHOCYTES # (AUTO) 0.5 K/uL (1.0-4.8); LYMPHOCYTES % (AUTO) 2.9 % (22.0-44.0); MEAN CORPUSCULAR HEMOGLOBIN 30.3 pg (26.0-34.0); MEAN CORPUSCULAR HGB CONC 33.8 G/dL (31.0-37.0); MEAN CORPUSCULAR VOLUME 90 fL (80-100); MONOCYTES # (AUTO) 0.3 K/uL (0.1-1.0); MONOCYTES % (AUTO) 1.5 % (2.0-9.0); NEUTROPHILS # (AUTO) 16.5 K/uL (1.8-7.7); NEUTROPHILS % (AUTO) 95.4 % (40.0-70.0); PLATELET COUNT (AUTO) 298 K/uL (150-450); RED BLOOD CELL COUNT(AUTO) 2.71 MIL/uL (4.50-5.90); RED CELL DISTRIBUTION WIDTH 14.2 % (11.5-14.5)
[2019-07-17 19:20] LABS: INR 1.1 (0.9-1.1); PROTHROMBIN TIME 11.6 SEC (9.4-11.6)
[2019-07-17 19:22] LABS: ANION GAP 8 mmol/L (8-16); CALCIUM, TOTAL 8.5 mg/dL (8.8-10.5); CARBON DIOXIDE 29 mmol/L (22-29); CHLORIDE 102 mmol/L (98-107); CREATININE 1.94 mg/dL (0.60-1.30); GLOMERULAR FILTR. RATE CALC 35 mL/min (>60); GLUCOSE,RANDOM 148 mg/dL (70-110); POTASSIUM 4.2 mmol/L (3.5-5.1); SODIUM SERUM 139 mmol/L (136-145); UREA NITROGEN, BLOOD 34 mg/dL (7-18)
[2019-07-17 19:35] LABS: LACTIC ACID 3.1 mmol/L (0.4-2.0)
[2019-07-17 19:40] LABS: ALANINE AMINOTRANSFERASE 306 U/L (12-78); ALBUMIN 2.9 g/dL (3.4-5.0); ALKALINE PHOSPHATASE 383 U/L (46-116); ASPARTATE AMINOTRANSFERASE 230 U/L (15-37); BILIRUBIN,TOTAL 3.2 mg/dL (0.1-1.0); FREE T4 (FREE THYROXINE) 1.11 ng/dL (0.76-1.46); LIPASE 35 U/L (73-393)
[2019-07-17 19:44] LABS: B-TYPE NATRIURETIC PEPTIDE 71 pg/mL (0-100)
[2019-07-17 19:44] LABS: APPEARANCE,URINE CLOUDY (CLEAR); GLUCOSE, URINE (UA) NEGATIVE (NEGATIVE); KETONES,URINE NEGATIVE (NEGATIVE); LEUKOCYTE ESTERASE ,URINE SMALL (NEGATIVE); NITRATE,URINE NEGATIVE (NEGATIVE); OCCULT BLOOD,URINE LARGE (NEGATIVE); PH,URINE 7.5 (5.0-8.0); PROTEIN,URINE POS 1+ (NEGATIVE)
[2019-07-17 19:49] LABS: AMPHET/METH SCREEN,URINE NEGATIVE (NEGATIVE); BARBITURATE SCREEN, URINE NEGATIVE (NEGATIVE); BENZODIAZEPINES SCREEN,URINE NEGATIVE (NEGATIVE); BILIRUBIN,URINE PRELIM. POSITIVE (NEGATIVE); CANNABINOID SCREEN,URINE NEGATIVE (NEGATIVE); COCAINE SCREEN,URINE NEGATIVE (NEGATIVE); METHADONE SCREEN, URINE NEGATIVE (NEGATIVE); OPIATE SCREEN,URINE POSITIVE (NEGATIVE); PHENCYCLIDINE SCREEN,URINE NEGATIVE (NEGATIVE)
[2019-07-17 20:06] LABS: RBC,URINE >100 /HPF (0-2)
[2019-07-17 20:07] LABS: BACTERIA,URINE Moderate /HPF (None Seen); SQUAMOUS EPITHELIAL CELL,UR Few /LPF (None Seen)
[2019-07-17] MEDS ORDERED: BARIUM SULFATE 0.1% SUSPENSION 450 ML BOTTLE PO ONE (20:45)
[2019-07-17] MEDS ORDERED: SODIUM CHLORIDE 0.9% 2,000 ML IV ONE (21:00)
[2019-07-17] MEDS ORDERED: CefTRIAXone 1 GM/DEXTROSE 50 ML IV ONE (21:00)
[2019-07-17] MEDS ORDERED: ONDANSETRON HCL 4 MG/2 ML VIAL IVP PRN (22:15)
[2019-07-17] MEDS ORDERED: 0.9% SODIUM CHLORIDE 10 ML SYRINGE IVP PRN (22:15)
[2019-07-17] MEDS ORDERED: INSULIN LISPRO 100 UNITS/ML SQ PRN (22:15)
[2019-07-17] MEDS ORDERED: SODIUM CHLORIDE 0.9% 1,000 ML IV ONE (22:15)
[2019-07-17] MEDS ORDERED: DEXTROSE 50%-WATER 25 GM/50 ML SYRINGE IVP PRN (22:15)
[2019-07-17] MEDS ORDERED: VANCOMYCIN HCL 1.5 GM in DEXTROSE 5%-WATER 250 ML IV ONE (22:30)
[2019-07-18] MEDS: HEPARIN SODIUM,PORCINE 5,000 UNITS/ML VIAL SQ SCH ×4 (00:57→15:54)
[2019-07-18 01:00] VITALS: BP 111/63
[2019-07-18] MEDS: PIPERACILLIN/TAZO 3.375 GM/D5W 50 ML IV SCH ×4 (02:58→20:13)
[2019-07-18 05:26] VITALS: BP 97/59
[2019-07-18] MEDS ORDERED: VANCOMYCIN HCL 1.25 GM in DEXTROSE 5%-WATER 250 ML IV SCH (07:00)
[2019-07-18 08:05] VITALS: BP 99/50
[2019-07-18] MEDS: PANTOPRAZOLE SODIUM 40 MG/VIAL IVP SCH (08:20)
[2019-07-18] MEDS ORDERED: GADOBUTROL 1 MMOL/ML 10 ML VIAL IVP ONE (08:23)
[2019-07-18 11:00] LABS: GLUCOMETER DEV NAME(LOC) 5S.1; GLUCOSE,POINT OF CARE 85 MG/DL (70-110)
[2019-07-18 11:49] VITALS: BP 110/58
[2019-07-18 13:18] LABS: GLUCOMETER DEV NAME(LOC) 5S.1; GLUCOSE,POINT OF CARE 153 MG/DL (70-110)
[2019-07-18] MEDS ORDERED: METO25 PO (17:23)
[2019-07-18] MEDS ORDERED: HEPA500018 SQ (17:26)
[2019-07-18] MEDS ORDERED: PANT40VI14 IVP (17:34)
[2019-07-18] MEDS ORDERED: ZOSY3375FZ IV (17:37)
[2019-07-18] MEDS ORDERED: VANC1IV IV (17:47)
[2019-07-18] MEDS ORDERED: D5050I IVP (17:52)
[2019-07-18] MEDS ORDERED: INSU100V SQ (17:54)
[2019-07-18] MEDS ORDERED: ONDA4VIA22 IV (18:09)
[2019-07-18 19:46] VITALS: BP 100/48
[2019-07-18] MEDS ORDERED: LEVOFLOXACIN 750 MG/D5% WATER 150 ML IV SCH (22:00)
[2019-07-18 23:32] LABS: GLUCOMETER DEV NAME(LOC) 5S.1; GLUCOSE,POINT OF CARE 146 MG/DL (70-110)
[2019-07-18 23:34] LABS: GLUCOMETER DEV NAME(LOC) 5S.1; GLUCOSE,POINT OF CARE 133 MG/DL (70-110)
[2019-07-19 00:38] VITALS: BP 105/51
[2019-07-19] MEDS ORDERED: SODIUM CHLORIDE 0.9% 250 ML IV ONE (04:21)
[2019-07-19] MEDS: PIPERACILLIN/TAZO 3.375 GM/D5W 50 ML IV SCH ×2 (05:01→08:51)
[2019-07-19 07:18] VITALS: BP 138/81
[2019-07-19] MEDS: HEPARIN SODIUM,PORCINE 5,000 UNITS/ML VIAL SQ SCH ×2 (08:00)
[2019-07-19] MEDS: PANTOPRAZOLE SODIUM 40 MG/VIAL IVP SCH (08:51)
[2019-07-19 10:51] VITALS: BP 126/78
[2019-07-19 11:13] LABS: BASOPHILS % (AUTO) 0.3 % (0.0-2.0); EOSINOPHILS % (AUTO) 0.1 % (1.0-6.0); LYMPHOCYTES # (AUTO) 0.7 K/uL (1.0-4.8); LYMPHOCYTES % (AUTO) 7.5 % (22.0-44.0); MEAN CORPUSCULAR HEMOGLOBIN 30.6 pg (26.0-34.0); MEAN CORPUSCULAR HGB CONC 34.5 G/dL (31.0-37.0); MEAN CORPUSCULAR VOLUME 89 fL (80-100); MONOCYTES # (AUTO) 0.5 K/uL (0.1-1.0); MONOCYTES % (AUTO) 5.5 % (2.0-9.0); NEUTROPHILS # (AUTO) 8.3 K/uL (1.8-7.7); PLATELET COUNT (AUTO) 260 K/uL (150-450); RED BLOOD CELL COUNT(AUTO) 2.23 MIL/uL (4.50-5.90)
[2019-07-19 11:27] LABS: HEMOGLOBIN 6.8 g/dL (13.5-17.5)
[2019-07-19 11:28] LABS: HEMATOCRIT 19.8 % (41-53); NEUTROPHILS % (AUTO) 86.6 % (40.0-70.0)
[2019-07-19 11:30] LABS: ALBUMIN 2.9 g/dL (3.4-5.0); BILIRUBIN,TOTAL 0.8 mg/dL (0.1-1.0); CALCIUM, TOTAL 8.9 mg/dL (8.8-10.5); CREATININE 1.27 mg/dL (0.60-1.30); MAGNESIUM 1.6 mg/dL (1.80-2.40); TOTAL PROTEIN, SERUM 7.3 g/dL (6.4-8.2)
[2019-07-19 11:32] LABS: POTASSIUM 2.9 mmol/L (3.5-5.1)
== END 2019-07-19 11:15 | disposition left against medical advice (07) | DRG 872 ==
LOC: EMS 17:13 → 5S 07-18 00:20
PROVIDERS: ADMIT Internal Medicine; ATTEND Internal Medicine
DX: A41.9 Sepsis, unspecified organism (principal); E87.2 Acidosis; N39.0 Urinary tract infection, site not specified; K83.09 Other cholangitis; F20.9 Schizophrenia, unspecified; Z53.29 Procedure and treatment not carried out because of patient's decision for other reasons; I10 Essential (primary) hypertension; J44.9 Chronic obstructive pulmonary disease, unspecified; Z88.0 Allergy status to penicillin; E78.00 Pure hypercholesterolemia, unspecified; K83.8 Other specified diseases of biliary tract; F17.200 Nicotine dependence, unspecified, uncomplicated; F32.9 Major depressive disorder, single episode, unspecified; K21.9 Gastro-esophageal reflux disease without esophagitis; Z90.49 Acquired absence of other specified parts of digestive tract; E11.9 Type 2 diabetes mellitus without complications; E78.5 Hyperlipidemia, unspecified; F17.210 Nicotine dependence, cigarettes, uncomplicated; K86.89 Other specified diseases of pancreas; N40.1 Benign prostatic hyperplasia with lower urinary tract symptoms; R33.8 Other retention of urine
CPT/HCPCS: 70450; 74176; 74183; 76700; 83605; 83735; 84145; 84439; 86850; 86900; 86901; 87040; 87086; 93005; A9585; C9113; G0480; J0696; J1644; J1956; J2543; J3370; J7030; J7050; J7060

== ENCOUNTER 2019-12-21 10:18 | Emergency (ER) | payer MEDICARE, OTHER ==
[~2019-12-21] VITALS: Ht 167.6 cm; Wt 71.8 kg
[~2019-12-21 10:18] MED LIST changes: +D5050I IVP; +HEPA500018 SQ; +INSU100V SQ; +LOSA50TA37 PO; -LOSA50TA64 PO; +METO25 PO; -METO50 PO; +ONDA4VIA22 IV; +PANT40VI14 IVP; -TIOT185 IH; +VANC1IV IV; +ZOSY3375FZ IV
[2019-12-21 11:12] LABS: BASOPHILS % (AUTO) 0.7 % (0.0-2.0); EOSINOPHILS % (AUTO) 1.6 % (1.0-6.0); HEMATOCRIT 22.6 % (41-53); LYMPHOCYTES # (AUTO) 1.3 K/uL (1.0-4.8); LYMPHOCYTES % (AUTO) 16.9 % (22.0-44.0); MEAN CORPUSCULAR HEMOGLOBIN 19.9 pg (26.0-34.0); MEAN CORPUSCULAR HGB CONC 29.3 G/dL (31.0-37.0); MEAN CORPUSCULAR VOLUME 68 fL (80-100); MONOCYTES # (AUTO) 0.7 K/uL (0.1-1.0); MONOCYTES % (AUTO) 9.1 % (2.0-9.0); NEUTROPHILS # (AUTO) 5.3 K/uL (1.8-7.7); NEUTROPHILS % (AUTO) 71.7 % (40.0-70.0); PLATELET COUNT (AUTO) 386 K/uL (150-450); RED BLOOD CELL COUNT(AUTO) 3.34 MIL/uL (4.50-5.90); RED CELL DISTRIBUTION WIDTH 21.6 % (11.5-14.5)
[2019-12-21 11:16] LABS: HEMOGLOBIN 6.6 g/dL (13.5-17.5)
[2019-12-21 11:17] LABS: ANION GAP 13 mmol/L (8-16); CARBON DIOXIDE 26 mmol/L (22-29); CHLORIDE 102 mmol/L (98-107); CREATININE 0.88 mg/dL (0.60-1.30); GLOMERULAR FILTR. RATE CALC > 60 mL/min (>60); GLUCOSE,RANDOM 147 mg/dL (70-110); POTASSIUM 3.4 mmol/L (3.5-5.1); SODIUM SERUM 141 mmol/L (136-145); UREA NITROGEN, BLOOD 11 mg/dL (7-18)
[2019-12-21 11:18] LABS: CALCIUM, TOTAL 8.8 mg/dL (8.8-10.5)
[2019-12-21 11:22] LABS: ALANINE AMINOTRANSFERASE 12 U/L (12-78); ALKALINE PHOSPHATASE 118 U/L (46-116); ASPARTATE AMINOTRANSFERASE 14 U/L (15-37); BILIRUBIN,TOTAL 0.7 mg/dL (0.1-1.0)
[2019-12-21 11:23] LABS: ALBUMIN 3.2 g/dL (3.4-5.0); TOTAL PROTEIN, SERUM 8.2 g/dL (6.4-8.2)
[2019-12-21 11:44] LABS: B-TYPE NATRIURETIC PEPTIDE 550 pg/mL (0-100)
[2019-12-21] MEDS ORDERED: 0.9% SODIUM CHLORIDE 10 ML SYRINGE IVP PRN (11:45)
[2019-12-21] MEDS ORDERED: ONDANSETRON HCL 4 MG/2 ML VIAL IVP PRN (11:45)
[2019-12-21] MEDS ORDERED: ACETAMINOPHEN 325 MG TABLET PO PRN ×2 (11:45→12:45)
[2019-12-21 12:00] LABS: INR 1.2 (0.9-1.1)
[2019-12-21 12:43] LABS: % IRON SATURATION 3.6 % (30-44)
[2019-12-21] MEDS ORDERED: POTASSIUM CHL 10 MEQ/WATER 50 ML IV PRN (12:45)
[2019-12-21] MEDS ORDERED: AmLODIPine BESYLATE 5 MG TABLET PO SCH (12:45)
[2019-12-21] MEDS ORDERED: INSULIN LISPRO 100 UNITS/ML SQ PRN (12:45)
[2019-12-21] MEDS ORDERED: MULTIVITAMINS WITH MINERALS, THERAPEUTIC TABLET PO SCH (12:45)
[2019-12-21] MEDS ORDERED: POTASSIUM CHLORIDE 20 MEQ ER TABLET PO PRN (12:45)
[2019-12-21] MEDS ORDERED: DEXTROSE 50%-WATER 25 GM/50 ML SYRINGE IVP PRN (12:45)
[2019-12-21] MEDS ORDERED: PANTOPRAZOLE SODIUM 40 MG/VIAL IVP SCH (12:45)
[2019-12-21 12:55] VITALS: BP 147/81
[2019-12-21 13:10] VITALS: BP 152/81
[2019-12-21 13:25] VITALS: BP 149/88
[2019-12-21 13:55] VITALS: BP 154/76
[2019-12-21 14:45] VITALS: BP 153/79
[2019-12-21] MEDS ORDERED: DOCUSATE SODIUM 100 MG CAPSULE PO SCH (21:00)
== END 2019-12-21 16:30 | disposition left against medical advice (07) ==
LOC: EMS 10:27
DX: D64.9 Anemia, unspecified (principal); J45.909 Unspecified asthma, uncomplicated; F32.9 Major depressive disorder, single episode, unspecified; E78.00 Pure hypercholesterolemia, unspecified; F20.9 Schizophrenia, unspecified; I10 Essential (primary) hypertension; F17.210 Nicotine dependence, cigarettes, uncomplicated; Z79.4 Long term (current) use of insulin; Z88.0 Allergy status to penicillin
CPT/HCPCS: 36415; 36430; 80053; 82270; 83540; 83550; 83880; 84484; 85025; 85610; 85730; 86850; 86900; 86901; 86923; 96374; 99285; C9113; P9016

== ENCOUNTER 2020-01-03 01:24 | Emergency (ER) | payer MEDICARE, OTHER ==
[~2020-01-03] VITALS: Ht 167.6 cm; Wt 72.7 kg
[2020-01-03] VITALS (10 sets, daily range): BP systolic 145–180; BP diastolic 69–91
[~2020-01-03 01:24] MED LIST changes: -D5050I IVP; -VANC1IV IV; -ZOSY3375FZ IV
[2020-01-03] MEDS ORDERED: METF-960 PO (01:37)
[2020-01-03] MEDS ORDERED: LOSARTAN POTASSIUM 50 MG TABLET PO ONE (02:00)
[2020-01-03] MEDS ORDERED: IPRATROPIUM BROMIDE 0.5 MG/2.5 ML NEB SOLUTION NEB ONE (02:00)
[2020-01-03] MEDS ORDERED: MethylPREDNISolone SOD SUCC 125 MG/2 ML VIAL IVP ONE (02:00)
[2020-01-03] MEDS ORDERED: MAGNESIUM SULFATE 2 GM/WATER 50 ML IV ONE (02:00)
[2020-01-03] MEDS ORDERED: ALBUTEROL SULFATE 2.5 MG/0.5 ML NEB SOLUTION NEB ONE (02:00)
[2020-01-03 02:26] LABS: EOSINOPHILS % (AUTO) 3.3 % (1.0-6.0); LYMPHOCYTES # (AUTO) 1.2 K/uL (1.0-4.8); LYMPHOCYTES % (AUTO) 16.1 % (22.0-44.0); MEAN CORPUSCULAR HEMOGLOBIN 22.2 pg (26.0-34.0); MEAN CORPUSCULAR HGB CONC 32.4 G/dL (31.0-37.0); MEAN CORPUSCULAR VOLUME 69 fL (80-100); MONOCYTES # (AUTO) 0.7 K/uL (0.1-1.0); MONOCYTES % (AUTO) 9.6 % (2.0-9.0); PLATELET COUNT (AUTO) 337 K/uL (150-450); RED BLOOD CELL COUNT(AUTO) 3.02 MIL/uL (4.50-5.90); RED CELL DISTRIBUTION WIDTH 23.1 % (11.5-14.5)
[2020-01-03] MEDS ORDERED: ALBUTEROL SULFATE HFA 90 MCG/PUFF 8 GM INHALER IH ONE ×2 (02:42→03:00)
[2020-01-03 02:55] LABS: ANION GAP 15 mmol/L (8-16); CALCIUM, TOTAL 8.8 mg/dL (8.8-10.5); CARBON DIOXIDE 27 mmol/L (22-29); CHLORIDE 101 mmol/L (98-107); CREATININE 0.93 mg/dL (0.60-1.30); GLOMERULAR FILTR. RATE CALC > 60 mL/min (>60); GLUCOSE,RANDOM 104 mg/dL (70-110); POTASSIUM 3.7 mmol/L (3.5-5.1); SODIUM SERUM 143 mmol/L (136-145); UREA NITROGEN, BLOOD 15 mg/dL (7-18)
[2020-01-03 02:59] LABS: HEMATOCRIT 20.7 % (41-53); HEMOGLOBIN 6.7 g/dL (13.5-17.5)
[2020-01-03 03:00] LABS: ALANINE AMINOTRANSFERASE 15 U/L (12-78); ALBUMIN 3.2 g/dL (3.4-5.0); ALKALINE PHOSPHATASE 118 U/L (46-116); ASPARTATE AMINOTRANSFERASE 14 U/L (15-37); TOTAL PROTEIN, SERUM 8.1 g/dL (6.4-8.2)
[2020-01-03 03:11] LABS: B-TYPE NATRIURETIC PEPTIDE 806 pg/mL (0-100)
[2020-01-03] MEDS ORDERED: FUROSEMIDE 40 MG/4 ML VIAL IVP ONE ×2 (03:15→06:00)
[2020-01-03] MEDS ORDERED: SODIUM CHLORIDE 0.9% 500 ML IV ONE (09:08)
[2020-01-03 09:17] LABS: HEMATOCRIT 26.7 % (41-53); HEMOGLOBIN 8.3 g/dL (13.5-17.5)
== END 2020-01-03 12:30 | disposition left against medical advice (07) ==
LOC: EMS 01:30
DX: I11.0 Hypertensive heart disease with heart failure (principal); I50.9 Heart failure, unspecified; D64.9 Anemia, unspecified; J45.909 Unspecified asthma, uncomplicated; F32.9 Major depressive disorder, single episode, unspecified; F20.9 Schizophrenia, unspecified; F17.210 Nicotine dependence, cigarettes, uncomplicated; Z88.0 Allergy status to penicillin
CPT/HCPCS: 36415; 36430; 71045; 80053; 82271; 83880; 84484; 85014; 85018; 85025; 86850; 86900; 86901; 86923; 93005; 94640; 96365; 96366; 96375; 96376; 99285; J1940; J2930; J3475; J7040; P9016; J3535

== ENCOUNTER → 2021-02-25 | Emergency (ER) | payer MEDICARE, OTHER ==
[~2021-02-25] VITALS: Ht 170.2 cm; Wt 75.5 kg
[~2021-02-25] MED LIST changes: -ATOR40TA28 PO; -HEPA500018 SQ; -INSLAN SQ; -INSU100V SQ; -LOSA50TA37 PO; +METF-960 PO; -OMEP20 PO; -ONDA4VIA22 IV; -PANT40VI14 IVP; -TAMS-13 PO
[2021-02-25 22:46] VITALS: BP 124/79
== END | disposition home or self-care (01) ==
LOC: EMS 22:10
DX: Z53.21 Procedure and treatment not carried out due to patient leaving prior to being seen by health care provider (principal)

== ENCOUNTER 2021-03-29 07:18 | Emergency (ER) | payer MEDICARE, OTHER ==
[~2021-03-29] VITALS: Ht 165.1 cm; Wt 72.7 kg
[2021-03-29] MEDS ORDERED: LOSA25TA21 PO (07:58)
[2021-03-29] MEDS ORDERED: DOXYCYCLINE HYCLATE 100 MG TABLET PO ONE (08:15)
[2021-03-29] MEDS ORDERED: LIDOCAINE 1% 10 ML VIAL ID ONE (08:15)
[2021-03-29 08:49] LABS: GLUCOMETER DEV NAME(LOC) ERT.5; GLUCOSE,POINT OF CARE 135 MG/DL (70-110)
[2021-03-29 09:19] VITALS: BP 131/76
== END 2021-03-29 09:36 | disposition left against medical advice (07) ==
LOC: EMS 07:26
DX: L02.414 Cutaneous abscess of left upper limb (principal); L03.114 Cellulitis of left upper limb; F19.10 Other psychoactive substance abuse, uncomplicated; F17.210 Nicotine dependence, cigarettes, uncomplicated; I10 Essential (primary) hypertension; E11.9 Type 2 diabetes mellitus without complications; F32.9 Major depressive disorder, single episode, unspecified; J45.909 Unspecified asthma, uncomplicated; E78.00 Pure hypercholesterolemia, unspecified
CPT/HCPCS: 10060; 82962; 99283; J3490; 10061; 99284